=== PATIENT | female | born 1965 | race Caucasian/White ===

== ENCOUNTER 2022-03-19 17:45 | Inpatient (IN) | payer MEDICAID ==
[~2022-03-19] VITALS: Ht 170.2 cm; Wt 76.4 kg
[2022-03-19 18:16] LABS: BASOPHILS % (AUTO) 0.5 % (0-1); EOSINOPHILS # (AUTO) 0.1 X10'3 (0-0.9); EOSINOPHILS % (AUTO) 0.6 % (0-6); HEMOGLOBIN 15.2 g/dl (12.0-16.0); LYMPHOCYTES # (AUTO) 1.4 X10'3 (1.1-4.8); LYMPHOCYTES % (AUTO) 14.5 % (21-51); MEAN CORPUSCULAR HEMOGLOBIN 29.4 PG (27.0-31.0); MEAN CORPUSCULAR HGB CONC 33.8 g/dL (33.0-36.5); MEAN CORPUSCULAR VOLUME 86.8 FL (78-98); MEAN PLATELET VOLUME 8.1 FL (7.4-10.4); MONOCYTES # (AUTO) 0.6 X10'3 (0-0.9); MONOCYTES % (AUTO) 6.3 % (2-12); NEUTROPHILS # (AUTO) 7.6 X10'3 (1.8-7.7); NEUTROPHILS % (AUTO) 78.1 % (42-75); PLATELET COUNT 82 X10'3 (140-440); RED BLOOD COUNT 5.18 X10'6 (4.20-5.60); RED CELL DISTRIBUTION WIDTH 19.7 % (11.5-14.5); WHITE BLOOD COUNT 9.8 X10'3 (4.5-11.0)
[2022-03-19 18:33] LABS: ALANINE AMINOTRANSFERASE 97 U/L (12-78); ALBUMIN 3.7 G/DL (3.4-5.0); ALBUMIN/GLOBULIN RATIO 1.1 (1.1-1.5); ALKALINE PHOSPHATASE 170 IU/L (46-116); ANION GAP 13 (8-16); ASPARTATE AMINO TRANSFERASE 150 U/L (10-37); BLOOD UREA NITROGEN 17 MG/DL (7-18); BUN/CREATININE RATIO 23.3 (6.6-38.0); CALCIUM 8.5 MG/DL (8.5-10.1); CHLORIDE 105 MMOL/L (99-107); CREATININE 0.73 MG/DL (0.40-0.90); GLUCOSE 152 MG/DL (70-104); LIPASE 151 U/L (73-393); SODIUM 143 MMOL/L (135-145); TOTAL CARBON DIOXIDE 25.1 MMOL/L (24-32); TOTAL PROTEIN 7.2 G/DL (6.4-8.2); eGFR 82 ML/MIN
[2022-03-19 18:40] LABS: POTASSIUM 2.8 MMOL/L (3.5-5.1)
[2022-03-19 18:49] LABS: ANISOCYTOSIS 2+; ELLIPTOCYTES FEW; PLATELET ESTIMATE DECREASED
[2022-03-19 21:56] LABS: CLARITY,URINE CLOUDY (Clear); COLOR,URINE YELLOW (Yellow); GLUCOSE, URINE NEGATIVE (Neg); KETONES,URINE 15 mg/dl (Neg); LEUKOCYTE ESTERASE ,URINE NEGATIVE (Neg); NITRITES, URINE POSITIVE (Neg); OCCULT BLOOD,URINE SMALL (Neg); PROTEIN,URINE 30 mg/dl (Neg)
[2022-03-19 22:00] LABS: UA COLLECTION TYPE CLN CATCH MIDSTREAM
[2022-03-19 22:04] LABS: BACTERIA,URINE 4+ /HPF (Neg); HYALINE CASTS 0-3 /LPF (NEGATIVE); MUCUS STRANDS FEW /LPF (Neg); RBC,URINE 0-2 /HPF (0-2); SQUAMOUS EPITHELIAL CELL,UR FEW /LPF (FEW); TRANSITIONAL EPI CELLS,URINE FEW /HPF
[2022-03-19] MEDS ORDERED: pantoprazole 40MG/NS 100ML BAG 100 ML IV STA (23:29)
[2022-03-19] MEDS ORDERED: normal saline 1000ml 1,000 ML IV ONE (23:30)
[2022-03-19] MEDS ORDERED: cefTRIAXone 1g/NS 100ml IVPB 100 ML IV ONE (23:30)
[2022-03-19] MEDS ORDERED: metoclopramide 5 mg/ml inj IV ONE (23:30)
[2022-03-19] MEDS ORDERED: potassium Cl 20 mEq/100mL bag IV ONE (23:35)
[2022-03-19] MEDS ORDERED: potassium Cl 20mEq/100mL bag 100 ML IV ONE (23:50)
[2022-03-19 23:53] LABS: ETHANOL 0.021 GM/DL (0.0-0.010)
[2022-03-19] MEDS ORDERED: LORazepam 2 mg/ml vial IV ONE (23:55)
[2022-03-19] MEDS ORDERED: octreotide inj. 500 MCG in normal saline 100ml IV soln 97.5 ML IV ONE (23:55)
[2022-03-19 23:56] LABS: APTT 31 SECONDS (22-32)
[2022-03-20] VITALS (23 sets, daily range): BP systolic 89–146; BP diastolic 45–98
[2022-03-20] MEDS: octreotide inj. 500 MCG in normal saline 100ml IV soln 100 ML IV ONE ×2 (00:18→01:28)
[2022-03-20] MEDS ORDERED: OCTREOTIDE IV ONE (00:20)
[2022-03-20] MEDS ORDERED: NORMAL SALINE IV ONE (00:20)
[2022-03-20] MEDS ORDERED: tranexamic acid 100mg/ml inj. IV ONE (00:40)
[2022-03-20] MEDS: octreotide inj. 500 MCG in normal saline 100ml IV soln 97.5 ML IV SCH ×3 (01:29→20:05)
[2022-03-20] MEDS ORDERED: mag hydrox/Alum hydrox/simeth 30ml oral suspension PO PRN (02:10)
[2022-03-20] MEDS ORDERED: magnesium Cl slow-release 64mg tablet PO PRN (02:10)
[2022-03-20] MEDS ORDERED: ondansetron/PF 4mg/2ml inj IV PRN (02:10)
[2022-03-20] MEDS ORDERED: potassium Cl 20 mEq SR tablet PO PRN (02:10)
[2022-03-20] MEDS ORDERED: acetaminophen 325mg tablet PO PRN (02:10)
[2022-03-20] MEDS ORDERED: magnesium 2GM in 50ml NS 50 ML IV PRN (02:10)
[2022-03-20] MEDS ORDERED: magnesium 4gm in 100ml NS 100 ML IV PRN (02:10)
[2022-03-20] MEDS ORDERED: magnesium hydroxide 30ml (MOM) UD suspension PO PRN (02:10)
[2022-03-20] MEDS ORDERED: potassium CL 10mEq/100ml bag 100 ML IV PRN (02:10)
[2022-03-20 02:45] LABS: MAGNESIUM 1.6 MG/DL (1.5-2.4)
[2022-03-20 02:50] LABS: POTASSIUM 2.9 MMOL/L (3.5-5.1)
--- NOTE | 2022-03-20 03:32 | NUR ---
I have received report from Janes ED RN and had the opportunity to ask questions. Room is set up and ready for PT arrival.
[2022-03-20] MEDS ORDERED: magnesium 2GM in 50ml NS 50 ML IV ONE (04:10)
--- NOTE | 2022-03-20 04:30 | NUR ---
PT arrived from ED via gurney and transferred self to bed. PT placed on bedside monitor. PT is having PVC's and critical potassium is noted, received in report from ED RN that PT received 20meq replacement in ED, Pharmacy called and made aware of PT arrival and need for K replacement. Will administer when available. PT has PIV x3. Bed is locked and low. Will continue to monitor.
[2022-03-20] MEDS ORDERED: potassium Cl 40MEQ/1/2NS 520ml 520 ML IV PRN (04:45)
[2022-03-20] MEDS ORDERED: dextrose 50%-water 50ml dispensing syringe IV PRN (04:55)
[2022-03-20] MEDS ORDERED: LORazepam 2 mg/ml vial IV PRN (04:55)
[2022-03-20] MEDS ORDERED: SPIR25TA PO (05:54)
[2022-03-20] MEDS ORDERED: LURA20TA PO (05:54)
[2022-03-20] MEDS ORDERED: FURO40TA4 PO (05:54)
[2022-03-20] MEDS ORDERED: CLON-368 PO (05:54)
--- NOTE | 2022-03-20 06:33 | NUR ---
Problems reprioritized. Patient report given, questions answered & plan of care reviewed with Therese WRIGHT.
[2022-03-20] MEDS: K and/or MAG REPLACEMENT MC SCH ×2 (08:00→20:00)
[2022-03-20] MEDS ORDERED: heparin, porcine 5000 units/ml vial SQ SCH (08:00)
[2022-03-20] MEDS: docusate sod 100mg capsule PO SCH ×2 (08:00→20:00)
[2022-03-20 08:17] LABS: ALANINE AMINOTRANSFERASE 81 U/L (12-78); ALBUMIN/GLOBULIN RATIO 1.1 (1.1-1.5); ALKALINE PHOSPHATASE 127 IU/L (46-116); ANION GAP 12 (8-16); ASPARTATE AMINO TRANSFERASE 130 U/L (10-37); BILIRUBIN,TOTAL 2.2 MG/DL (0.1-1.0); BLOOD UREA NITROGEN 18 MG/DL (7-18); CALCIUM 7.8 MG/DL (8.5-10.1); CHLORIDE 108 MMOL/L (99-107); GLUCOSE 145 MG/DL (70-104); POTASSIUM 3.6 MMOL/L (3.5-5.1); SODIUM 143 MMOL/L (135-145); TOTAL CARBON DIOXIDE 23.3 MMOL/L (24-32); TOTAL PROTEIN 5.8 G/DL (6.4-8.2); eGFR > 90 ML/MIN
[2022-03-20] MEDS: folic acid 1mg/0.2ml inj IV SCH (08:21)
[2022-03-20] MEDS: thiamine 100mg/ml 2ml inj. IV SCH ×3 (08:21→20:12)
--- NOTE | 2022-03-20 09:39 | NUR ---
PER PATIENT REQUEST WALLET WAS SENT DOWN TO BE STORED IN THE [facility]AF[facility].
--- NOTE | 2022-03-20 09:41 | NUR ---
PATIENT COMPLAINING OF IV SITES ON LEFT ARM CAUSING PAIN, BOTH REMOVED AND A 22G PLACED.
[2022-03-20 10:29] LABS: BASOPHILS # (AUTO) 0.1 X10'3 (0-0.2); BASOPHILS % (AUTO) 1.3 % (0-1); EOSINOPHILS % (AUTO) 0 % (0-6); HEMATOCRIT 43.3 % (35.0-45.0); HEMOGLOBIN 14.5 g/dl (12.0-16.0); LYMPHOCYTES # (AUTO) 0.7 X10'3 (1.1-4.8); LYMPHOCYTES % (AUTO) 6.5 % (21-51); MEAN CORPUSCULAR HEMOGLOBIN 29.6 PG (27.0-31.0); MEAN CORPUSCULAR HGB CONC 33.5 g/dL (33.0-36.5); MEAN CORPUSCULAR VOLUME 88.4 FL (78-98); MONOCYTES # (AUTO) 0.6 X10'3 (0-0.9); MONOCYTES % (AUTO) 5.8 % (2-12); NEUTROPHILS # (AUTO) 9.2 X10'3 (1.8-7.7); NEUTROPHILS % (AUTO) 86.4 % (42-75); PLATELET COUNT 87 X10'3 (140-440); RED BLOOD COUNT 4.89 X10'6 (4.20-5.60); RED CELL DISTRIBUTION WIDTH 20.5 % (11.5-14.5); WHITE BLOOD COUNT 10.6 X10'3 (4.5-11.0)
[2022-03-20 10:49] LABS: MAGNESIUM 1.8 MG/DL (1.5-2.4)
[2022-03-20] MEDS: pantoprazole 40MG/NS 100ML BAG 100 ML IV SCH ×4 (11:20→12:18)
[2022-03-20] MEDS ORDERED: fentaNYL/PF 50MCG/1 ML 2ML syringe ONE ×2 (14:34)
[2022-03-20] MEDS ORDERED: MIDAZolam 1 MG/ML 5ML VIAL ONE (14:35)
[2022-03-20] MEDS ORDERED: LIDOcaine Viscous 15ml cup ONE (14:35)
--- NOTE | 2022-03-20 14:45 | NUR ---
PATIENT TAKEN DOWN TO GI FOR EGD.
--- NOTE | 2022-03-20 15:03 | NUR ---
PATIENT EXTUBATED AT 1455. Addendum: 03/20/22 at 1503 by Joan Sanders RN WRONG PATIENT
[2022-03-20] MEDS ORDERED: chlordiazePOXIDE 25mg capsule PO PRN (15:35)
[2022-03-20] MEDS: chlordiazePOXIDE 25mg capsule PO SCH (20:08)
[2022-03-20] MEDS: LORazepam 1 MG tablet PO PRN (20:12)
[2022-03-20] MEDS: cefTRIAXone 1g/NS 100ml IVPB IV SCH (20:12)
[2022-03-21] VITALS (21 sets, daily range): BP systolic 93–147; BP diastolic 52–87
[2022-03-21] MEDS: chlordiazePOXIDE 25mg capsule PO SCH ×4 (01:28→20:00)
[2022-03-21] MEDS: LORazepam 1 MG tablet PO PRN ×8 (01:32→20:53)
[2022-03-21 06:37] LABS: APTT 31 SECONDS (22-32)
[2022-03-21 06:39] LABS: ALBUMIN 2.8 G/DL (3.4-5.0); ANION GAP 10 (8-16); BLOOD UREA NITROGEN 17 MG/DL (7-18); BUN/CREATININE RATIO 26.2 (6.6-38.0); CALCIUM 7.7 MG/DL (8.5-10.1); CHLORIDE 106 MMOL/L (99-107); CREATININE 0.65 MG/DL (0.40-0.90); GLUCOSE 131 MG/DL (70-104); MAGNESIUM 2.2 MG/DL (1.5-2.4); POTASSIUM 3.1 MMOL/L (3.5-5.1); SODIUM 140 MMOL/L (135-145); TOTAL CARBON DIOXIDE 24.4 MMOL/L (24-32); eGFR > 90 ML/MIN
[2022-03-21 06:40] LABS: BASOPHILS % (AUTO) 1.3 % (0-1); EOSINOPHILS # (AUTO) 0.1 X10'3 (0-0.9); EOSINOPHILS % (AUTO) 3.2 % (0-6); HEMATOCRIT 33.5 % (35.0-45.0); HEMOGLOBIN 11.5 g/dl (12.0-16.0); LYMPHOCYTES # (AUTO) 1.3 X10'3 (1.1-4.8); LYMPHOCYTES % (AUTO) 41.9 % (21-51); MEAN CORPUSCULAR HEMOGLOBIN 30.5 PG (27.0-31.0); MEAN CORPUSCULAR HGB CONC 34.4 g/dL (33.0-36.5); MEAN CORPUSCULAR VOLUME 88.5 FL (78-98); MEAN PLATELET VOLUME 8.6 FL (7.4-10.4); MONOCYTES # (AUTO) 0.3 X10'3 (0-0.9); NEUTROPHILS # (AUTO) 1.5 X10'3 (1.8-7.7); NEUTROPHILS % (AUTO) 45.6 % (42-75); RED BLOOD COUNT 3.78 X10'6 (4.20-5.60); RED CELL DISTRIBUTION WIDTH 19.8 % (11.5-14.5); WHITE BLOOD COUNT 3.2 X10'3 (4.5-11.0)
[2022-03-21 06:52] LABS: PLATELET COUNT 43 X10'3 (140-440)
[2022-03-21] MEDS: docusate sod 100mg capsule PO SCH ×2 (07:29→20:01)
[2022-03-21] MEDS: thiamine 100mg/ml 2ml inj. IV SCH ×3 (07:29→20:02)
[2022-03-21] MEDS: octreotide inj. 500 MCG in normal saline 100ml IV soln 97.5 ML IV SCH ×2 (07:31→17:19)
[2022-03-21 07:32] LABS: ANISOCYTOSIS 2+; LARGE PLATELETS FEW; PLATELET ESTIMATE DECREASED
[2022-03-21] MEDS: pantoprazole 40MG/NS 100ML BAG 100 ML IV SCH ×4 (07:50→20:48)
[2022-03-21] MEDS: folic acid 1mg/0.2ml inj IV SCH (07:51)
[2022-03-21] MEDS: K and/or MAG REPLACEMENT MC SCH ×2 (08:00→20:00)
[2022-03-21] MEDS: potassium Cl 20 mEq SR tablet PO PRN ×3 (11:02→20:01)
[2022-03-21] MEDS ORDERED: clonazePAM 0.5mg tablet PO PRN (12:20)
--- NOTE | 2022-03-21 13:45 | NUR ---
Malnutrition/DM Consults: Pt admit for etoh relapse, ESLD, cirrhosis, and hematemesis related to esophageal varices s/p EGD showing no active bleed per turfgrass technician at rounds. Receiving thiamin, folic acid for etoh per EMR. Pt reports 24-33 pound wt loss past 3 months w/ decreased intake past week per RN Malnutrition Screen. Pt hx T2DM though on no DM home meds and A1C 5.4% per EMR; unsure of accuracy. Pt PO mostly 0% first full liquid meal this AM outside eating all of cream of wheat per meal ticket on pt door during rounds; PO documentation in EMR likely error. Pt seen by RD reports feeling full after few bites w/ associated wt loss past few months though does not like liquid kcal drinks such as Ensures for fear of wt gain; no scaled wt hx in EMR. Pt reports has had intentional wt loss in past however not this time; appears WD/WN during RD visit w/ no edema/wounds or weakness noted in EMR. Pt advanced to regular diet first solid meal intake pending WL today per EMR. Pt lacks minimum malnutrition criteria at this time; will monitor for further malnutrition criteria and nutrition intervention needs this admit. Addendum: 03/21/22 at [address] Amended: Links added. Addendum: 03/21/22 at [address] Malnutrition/DM Consults: Pt admit for etoh relapse, end stage liver disease, cirrhosis, and hematemesis related to esophageal varices s/p EGD showing no active bleed per turfgrass technician at rounds. Receiving thiamin, folic acid for etoh per EMR. Pt reports 24-33 pound wt loss past 3 months w/ decreased intake past week per RN Malnutrition Screen. Pt hx T2DM though on no DM home meds and A1C 5.4% per EMR; unsure of accuracy. Pt PO mostly 0% first full liquid meal this AM outside eating all of cream of wheat per meal ticket on pt door during rounds; PO documentation in EMR likely error. Pt seen by RD reports feeling full after few bites w/ associated wt loss past few months though does not like liquid kcal drinks such as Ensures for fear of wt gain; no scaled wt hx in EMR. Pt reports has had intentional wt loss in past however not this time; appears WD/WN during RD visit w/ no edema/wounds or weakness noted in EMR. Pt advanced to regular diet first solid meal intake pending WL today per EMR. Pt lacks minimum malnutrition criteria at this time; will monitor for further malnutrition criteria and nutrition intervention needs this admit.
[2022-03-21] MEDS ORDERED: lurasidone 20mg tablet PO SCH (18:00)
--- NOTE | 2022-03-21 19:00 | NUR ---
Patient in room ORTHO 4010. I have received report from AM RN and had the opportunity to ask questions and assume patient care.
--- NOTE | 2022-03-21 19:30 | NUR ---
Report given to Ilana WRIGHT on Ortho. PT transferred to Ortho/Neuro Floor via wheelchair. Pt stood up and transferred herself to bed with minimal assist.
[2022-03-21] MEDS: cefTRIAXone 1g/NS 100ml IVPB IV SCH (23:11)
[2022-03-22] MEDS: LORazepam 1 MG tablet PO PRN ×3 (00:01→07:18)
[2022-03-22] MEDS: chlordiazePOXIDE 25mg capsule PO SCH ×2 (02:45→08:30)
[2022-03-22 06:00] VITALS: BP 109/67
--- NOTE | 2022-03-22 06:53 | NUR ---
Problems reprioritized. Patient report given, questions answered & plan of care reviewed with KYLE Hoyt.
[2022-03-22] MEDS: octreotide inj. 500 MCG in normal saline 100ml IV soln 97.5 ML IV SCH (07:16)
[2022-03-22] MEDS: thiamine 100mg/ml 2ml inj. IV SCH (07:17)
[2022-03-22] MEDS: pantoprazole 40MG/NS 100ML BAG 100 ML IV SCH ×2 (07:17→07:38)
[2022-03-22] MEDS: docusate sod 100mg capsule PO SCH (07:18)
[2022-03-22 07:25] LABS: BASOPHILS % (AUTO) 1.1 % (0-1); EOSINOPHILS # (AUTO) 0.1 X10'3 (0-0.9); EOSINOPHILS % (AUTO) 3.9 % (0-6); HEMATOCRIT 36.6 % (35.0-45.0); HEMOGLOBIN 12.3 g/dl (12.0-16.0); LYMPHOCYTES % (AUTO) 27.5 % (21-51); MEAN CORPUSCULAR HEMOGLOBIN 29.5 PG (27.0-31.0); MEAN CORPUSCULAR HGB CONC 33.7 g/dL (33.0-36.5); MEAN CORPUSCULAR VOLUME 87.7 FL (78-98); MEAN PLATELET VOLUME 8.5 FL (7.4-10.4); MONOCYTES # (AUTO) 0.3 X10'3 (0-0.9); NEUTROPHILS # (AUTO) 2.3 X10'3 (1.8-7.7); NEUTROPHILS % (AUTO) 60.5 % (42-75); PLATELET COUNT 53 X10'3 (140-440); RED BLOOD COUNT 4.18 X10'6 (4.20-5.60); RED CELL DISTRIBUTION WIDTH 19.5 % (11.5-14.5); WHITE BLOOD COUNT 3.8 X10'3 (4.5-11.0)
[2022-03-22 07:32] LABS: APTT 29 SECONDS (22-32)
[2022-03-22 07:50] LABS: ANION GAP 10 (8-16); BLOOD UREA NITROGEN 11 MG/DL (7-18); BUN/CREATININE RATIO 15.5 (6.6-38.0); CALCIUM 7.8 MG/DL (8.5-10.1); CHLORIDE 107 MMOL/L (99-107); CREATININE 0.71 MG/DL (0.40-0.90); GLUCOSE 119 MG/DL (70-104); POTASSIUM 3.9 MMOL/L (3.5-5.1); SODIUM 141 MMOL/L (135-145); TOTAL CARBON DIOXIDE 24.4 MMOL/L (24-32); eGFR 85 ML/MIN
[2022-03-22] MEDS ORDERED: spironolactone 25 MG tablet PO SCH (08:00)
[2022-03-22] MEDS ORDERED: folic acid 1mg tablet PO SCH (08:00)
[2022-03-22] MEDS: K and/or MAG REPLACEMENT MC SCH (08:00)
[2022-03-22] MEDS ORDERED: furosemide 40mg tablet PO SCH (08:00)
[2022-03-22 09:32] VITALS: BP 123/65
--- NOTE | 2022-03-22 10:13 | NUR ---
Hospitalist aware of bloody or orange urine with low output. Aware Lasix and spirolactone held this AM.
[2022-03-22] MEDS ORDERED: levoFLOXACIN 500mg tablet PO ONE (10:35)
--- NOTE | 2022-03-22 10:36 | NUR ---
Paged PT to work with pt.
--- NOTE | 2022-03-22 10:52 | NUR ---
PT ambulating with pt. at this moment
[2022-03-22] MEDS ORDERED: FOLI1TAB27 PO (11:44)
[2022-03-22] MEDS ORDERED: CEFD300C3 PO (11:44)
[2022-03-22] MEDS ORDERED: THIA100T70 PO (11:44)
[2022-03-22] MEDS ORDERED: PANT-47 PO (11:44)
--- NOTE | 2022-03-22 12:57 | NUR ---
DISCHARGE NOTE: reviewed discharge paperwork with pt and bf at bedside. education and review of new medications given. Pt. is aware that medications are at her preferred pharmacy. PIV already pulled out by pt, cannula intact, no s/sx bleeding noted. Pt. belongings gathered. Pt. thinks her wallet is stored in hospital safe, knows to stop by security. Pt. discharged home.
[2022-03-24] MEDS ORDERED: thiamine 100mg tablet PO SCH (08:00)
== END 2022-03-22 13:00 | disposition home or self-care (01) | DRG 254 ==
LOC: ER 17:46 → ED HOLD 03-20 02:16 → ICU 2S 03-20 04:15 → CICU 2S 03-21 18:07 → ORTHO 4S 03-21 20:15
PROVIDERS: ADMIT Internal Medicine Critical Care Medicine; ATTEND Internal Medicine Critical Care Medicine
PROC: 0DB68ZX Excision of Stomach, Via Natural or Artificial Opening Endoscopic, Diagnostic (ICD-10-PCS; principal; 2022-03-20)
PROC: 30233K1 Transfusion of Nonautologous Frozen Plasma into Peripheral Vein, Percutaneous Approach (ICD-10-PCS; 2022-03-20)
DX: K31.89 Other diseases of stomach and duodenum (principal); D61.818 Other pancytopenia; D68.4 Acquired coagulation factor deficiency; K72.10 Chronic hepatic failure without coma; D62 Acute posthemorrhagic anemia; N39.0 Urinary tract infection, site not specified; B96.20 Unspecified Escherichia coli [E. coli] as the cause of diseases classified elsewhere; E11.9 Type 2 diabetes mellitus without complications; D69.59 Other secondary thrombocytopenia; K70.30 Alcoholic cirrhosis of liver without ascites; E87.6 Hypokalemia; F10.20 Alcohol dependence, uncomplicated; K76.9 Liver disease, unspecified; Z79.899 Other long term (current) drug therapy
CPT/HCPCS: 36415; 36430; 43239; 80048; 80053; 80320; 81001; 82948; 83036; 83690; 83735; 84100; 84132; 85008; 85025; 85384; 85610; 85730; 86885; 86900; 86901; 87077; 87081; 87088; 87186; 97161; 97530; 99152; 99291; A4620; C9113; G0378; J0696; J2060; J2250; J2354; J2405; J2765; J3010; J3411; J3475; J3480; J3490; J7030; J7040; P9059

== ENCOUNTER 2022-04-10 15:26 | Emergency (ER) | payer MEDICAID ==
[~2022-04-10 15:26] MED LIST: CEFD300C3 PO; CLON-368 PO; FOLI1TAB27 PO; FURO40TA4 PO; LURA20TA PO; PANT-47 PO; SPIR25TA PO; THIA100T70 PO
== END 2022-04-10 18:47 | disposition left against medical advice (07) ==
LOC: ER 15:27
DX: R10.9 Unspecified abdominal pain (principal); Z53.21 Procedure and treatment not carried out due to patient leaving prior to being seen by health care provider

== ENCOUNTER 2022-05-02 08:32 | Day surgery (SDC) | payer MEDICAID ==
[~2022-05-02] VITALS: Ht 170.2 cm; Wt 78.0 kg
[~2022-05-02 08:32] MED LIST changes: -CEFD300C3 PO
[2022-05-02] MEDS ORDERED: LIDOcaine 1%/PF 5ML 10 MG/ML VIAL SQ ONE (08:45)
[2022-05-02 08:47] VITALS: BP 128/83
[2022-05-02] MEDS ORDERED: albumin 25% 100mL bottle x 1 IV PRN (09:30)
[2022-05-02 09:40] VITALS: BP 125/75
== END 2022-05-02 09:50 | disposition home or self-care (01) ==
LOC: SSTAY O 08:32
PROVIDERS: ATTEND Radiology Vascular & Interventional Radiology
DX: R18.8 Other ascites (principal); Z53.8 Procedure and treatment not carried out for other reasons; K72.10 Chronic hepatic failure without coma; K74.60 Unspecified cirrhosis of liver; F10.20 Alcohol dependence, uncomplicated; D69.6 Thrombocytopenia, unspecified; D73.1 Hypersplenism; E11.9 Type 2 diabetes mellitus without complications; F12.90 Cannabis use, unspecified, uncomplicated; F17.290 Nicotine dependence, other tobacco product, uncomplicated; Z90.710 Acquired absence of both cervix and uterus; Z90.49 Acquired absence of other specified parts of digestive tract
CPT/HCPCS: 76705; A6258

== ENCOUNTER 2024-01-31 18:15 | Inpatient (IN) | payer MEDICARE, MEDICAID ==
[~2024-01-31] VITALS: Ht 170.2 cm; Wt 69.8 kg
[~2024-01-31 18:15] MED LIST changes: -CLON-368 PO; -FOLI1TAB27 PO; -LURA20TA PO; +LURA20TA8 PO; -PANT-47 PO; -THIA100T70 PO
[2024-01-31] MEDS ORDERED: iohexol 350MG/ML 100ml bottle IV ONE (18:55)
[2024-01-31 19:38] LABS: EOSINOPHILS # (AUTO) 0.1 X10'3 (0-0.9); LYMPHOCYTES # (AUTO) 0.7 X10'3 (1.1-4.8); MEAN CORPUSCULAR VOLUME 83.3 FL (78-98); MONOCYTES # (AUTO) 0.3 X10'3 (0-0.9); NEUTROPHILS # (AUTO) 2.9 X10'3 (1.8-7.7); WHITE BLOOD COUNT 3.9 X10'3 (4.5-11.0)
[2024-01-31 19:39] LABS: EOSINOPHILS % (AUTO) 1.7 % (0-6); HEMATOCRIT 42.9 % (35.0-45.0); HEMOGLOBIN 15.1 g/dl (12.0-16.0); MEAN CORPUSCULAR HEMOGLOBIN 29.2 PG (27.0-31.0); MEAN CORPUSCULAR HGB CONC 35.1 g/dL (33.0-36.5); MEAN PLATELET VOLUME 8.6 FL (7.4-10.4); MONOCYTES % (AUTO) 6.4 % (2-12); NEUTROPHILS % (AUTO) 73.9 % (42-75); PLATELET COUNT 67 X10'3 (140-440); RED BLOOD COUNT 5.16 X10'6 (4.20-5.60); RED CELL DISTRIBUTION WIDTH 15.2 % (11.5-14.5)
[2024-01-31 19:46] LABS: APTT 32 SECONDS (22-32); INR 1.2 INR; PROTHROMBIN TIME 12.7 SECONDS (9.0-12.0)
[2024-01-31 19:49] LABS: ALANINE AMINOTRANSFERASE 20 U/L (12-78); ALBUMIN 4.2 G/DL (3.4-5.0); ALBUMIN/GLOBULIN RATIO 1.4 (1.1-1.5); ALKALINE PHOSPHATASE 118 IU/L (46-116); ANION GAP 10 (8-16); ASPARTATE AMINO TRANSFERASE 23 U/L (10-37); BILIRUBIN,TOTAL 1.5 MG/DL (0.1-1.0); BLOOD UREA NITROGEN 12 MG/DL (7-18); BUN/CREATININE RATIO 12.1 (10.0-20.0); CALCIUM 8.5 MG/DL (8.5-10.1); CHLORIDE 103 MMOL/L (99-107); CREATININE 0.99 MG/DL (0.40-0.90); GLUCOSE 99 MG/DL (70-104); POTASSIUM 3.5 MMOL/L (3.5-5.1); SODIUM 140 MMOL/L (135-145); TOTAL CARBON DIOXIDE 27.2 MMOL/L (24-32); TOTAL PROTEIN 7.1 G/DL (6.4-8.2); eCRCL 60 ML/MIN; eGFR 57 ML/MIN
[2024-01-31 19:56] LABS: PRO BRAIN NATRIURETIC PEPTIDE 60 PG/ML (0-125)
[2024-01-31] MEDS: normal saline 1000ml 1,000 ML IV ONE (20:02)
[2024-01-31] MEDS ORDERED: magnesium Cl slow-release 64mg tablet PO PRN (22:10)
[2024-01-31] MEDS ORDERED: magnesium 4gm in 100ml NS 100 ML IV PRN (22:10)
[2024-01-31] MEDS ORDERED: potassium Cl 20 mEq SR tablet PO PRN ×2 (22:10)
[2024-01-31] MEDS ORDERED: HYDROcodone/acetaminophen 5mg/325mg tablet PO PRN (22:10)
[2024-01-31] MEDS ORDERED: acetaminophen 325mg tablet PO PRN ×2 (22:10)
[2024-01-31] MEDS ORDERED: morphine 2 MG/ML inj. syringe IV PRN (22:10)
[2024-01-31] MEDS ORDERED: magnesium 2GM in 50ml NS 50 ML IV PRN (22:10)
[2024-01-31] MEDS ORDERED: potassium Cl 40MEQ/1/2NS 520ml 520 ML IV PRN (22:10)
[2024-01-31] MEDS ORDERED: ondansetron/PF 4mg/2ml inj IV PRN (22:10)
[2024-01-31] MEDS ORDERED: ZIPR80CA2 PO (23:20)
[2024-01-31] MEDS ORDERED: LAMO200T2 PO (23:20)
[2024-01-31] MEDS ORDERED: DESV100T PO (23:20)
[2024-01-31] MEDS: atorvastatin 20mg tablet PO SCH (23:55)
[2024-02-01] VITALS (7 sets, daily range): BP systolic 96–125; BP diastolic 58–78; PULSE 74–82; RESP 12–17; TEMP 97.9–98.7; O2SAT 97–99
[2024-02-01] MEDS: normal saline 1000ml 1,000 ML IV SCH (01:16)
[2024-02-01 01:22] LABS: ALANINE AMINOTRANSFERASE 15 U/L (12-78); ALBUMIN 3.7 G/DL (3.4-5.0); ALBUMIN/GLOBULIN RATIO 1.4 (1.1-1.5); ALKALINE PHOSPHATASE 98 IU/L (46-116); ANION GAP 12 (8-16); ASPARTATE AMINO TRANSFERASE 19 U/L (10-37); BILIRUBIN,TOTAL 1.4 MG/DL (0.1-1.0); BLOOD UREA NITROGEN 10 MG/DL (7-18); BUN/CREATININE RATIO 12.2 (10.0-20.0); CALCIUM 8.1 MG/DL (8.5-10.1); CHLORIDE 104 MMOL/L (99-107); CREATININE 0.82 MG/DL (0.40-0.90); GLUCOSE 73 MG/DL (70-104); POTASSIUM 3.6 MMOL/L (3.5-5.1); SODIUM 141 MMOL/L (135-145); TOTAL CARBON DIOXIDE 25.3 MMOL/L (24-32); TOTAL PROTEIN 6.3 G/DL (6.4-8.2); eCRCL 69 ML/MIN; eGFR 71 ML/MIN
[2024-02-01 07:39] LABS: BASOPHILS % (AUTO) 1.2 % (0-1); EOSINOPHILS # (AUTO) 0.1 X10'3 (0-0.9); EOSINOPHILS % (AUTO) 2.7 % (0-6); HEMATOCRIT 35.8 % (35.0-45.0); HEMOGLOBIN 12.2 g/dl (12.0-16.0); LYMPHOCYTES # (AUTO) 0.6 X10'3 (1.1-4.8); LYMPHOCYTES % (AUTO) 23.2 % (21-51); MEAN CORPUSCULAR HEMOGLOBIN 28.5 PG (27.0-31.0); MEAN CORPUSCULAR HGB CONC 34.1 g/dL (33.0-36.5); MEAN CORPUSCULAR VOLUME 83.7 FL (78-98); MEAN PLATELET VOLUME 8.7 FL (7.4-10.4); MONOCYTES # (AUTO) 0.3 X10'3 (0-0.9); MONOCYTES % (AUTO) 9.8 % (2-12); NEUTROPHILS # (AUTO) 1.6 X10'3 (1.8-7.7); NEUTROPHILS % (AUTO) 63.1 % (42-75); PLATELET COUNT 61 X10'3 (140-440); RED BLOOD COUNT 4.28 X10'6 (4.20-5.60); RED CELL DISTRIBUTION WIDTH 15.2 % (11.5-14.5); WHITE BLOOD COUNT 2.6 X10'3 (4.5-11.0)
[2024-02-01 08:25] LABS: TOTAL CELLS COUNTED 100
[2024-02-01 08:26] LABS: PLATELET ESTIMATE DECREASED
[2024-02-01] MEDS ORDERED: bisacodyl 10mg suppository rectal RC PRN (09:15)
[2024-02-01] MEDS: magnesium hydroxide 30ml (MOM) UD suspension PO ONE (10:09)
[2024-02-01] MEDS: bisacodyl 10mg suppository rectal RC STA (10:09)
[2024-02-01 10:37] LABS: CHOL/HDL RATIO 2.6 (0.00-4.99); CHOLESTEROL 119 MG/DL (0-200); ETHANOL < 10 MG/DL (<10); HDL CHOLESTEROL 45 MG/DL (35-60); LDL CHOLESTEROL 62 MG/DL (50-100); TRIGLYCERIDES 64 MG/DL (20-135)
[2024-02-01 11:29] LABS: URINE AMPHETAMINE SCREEN NEGATIVE (Neg); URINE BARBITUATE SCREEN NEGATIVE (Neg); URINE BENZODIAZEPINES SCREEN NEGATIVE (Neg); URINE CANNABINOID SCREEN NEGATIVE (Neg); URINE COCAINE SCREEN NEGATIVE (Neg); URINE METHADONE SCREEN NEGATIVE (Neg); URINE OPIATE SCREEN NEGATIVE (Neg); URINE PHENCYCLIDINE SCREEN NEGATIVE (Neg)
[2024-02-01] MEDS ORDERED: glucagon, human recombinant 1mg kit SUBCUT PRN (11:30)
[2024-02-01] MEDS ORDERED: dextrose 50%-water 50ml dispensing syringe IV PRN ×2 (11:30)
[2024-02-01] MEDS ORDERED: insulin Lispro (HumaLOG) vial - multi-dose SQ SCH (11:30)
[2024-02-01] MEDS ORDERED: DEXTROSE 15 GM of carb/4 tabs (each vial/BOTTLE has 4 tablets) PO PRN ×2 (11:30)
[2024-02-01] MEDS: LORazepam 2 mg/ml vial IV ONE (11:34)
[2024-02-01] MEDS: lactulose 20gm/30ml cup PO SCH (14:00)
[2024-02-01] MEDS: docusate sod 100mg capsule PO SCH (20:00)
[2024-02-01] MEDS: enoxaparin 40mg/0.4ml syringe SQ SCH (20:00)
[2024-02-01] MEDS: insulin glargine (Lantus) pen - multi-dose SQ SCH (21:00)
[2024-02-02 06:00] VITALS: BP_SYST 118; BP_SYST 121; BP_DIAS 70; BP_DIAS 74; PULSE 70; PULSE 76; RESP 14; RESP 16; TEMP 97.9; TEMP 98; O2SAT 92; O2SAT 96
[2024-02-02 08:00] VITALS: RESP 16; O2SAT 98
[2024-02-02] MEDS ORDERED: propranolol 10mg tablet PO SCH (08:00)
[2024-02-02] MEDS: DESVENLAFAXINE SUCCINATE PO SCH (08:00)
[2024-02-02] MEDS: ziprasidone 20mg capsule PO SCH (08:00)
[2024-02-02 09:07] LABS: EOSINOPHILS # (AUTO) 0.1 X10'3 (0-0.9); HEMOGLOBIN 12.2 g/dl (12.0-16.0); LYMPHOCYTES # (AUTO) 0.6 X10'3 (1.1-4.8); MEAN CORPUSCULAR HGB CONC 33.9 g/dL (33.0-36.5); MONOCYTES # (AUTO) 0.2 X10'3 (0-0.9); MONOCYTES % (AUTO) 8.6 % (2-12); NEUTROPHILS # (AUTO) 1.3 X10'3 (1.8-7.7); WHITE BLOOD COUNT 2.2 X10'3 (4.5-11.0)
[2024-02-02 09:11] LABS: BASOPHILS % (AUTO) 1.1 % (0-1); EOSINOPHILS % (AUTO) 3.6 % (0-6); LYMPHOCYTES % (AUTO) 26.6 % (21-51); MEAN CORPUSCULAR HEMOGLOBIN 28.7 PG (27.0-31.0); MEAN CORPUSCULAR VOLUME 84.7 FL (78-98); MEAN PLATELET VOLUME 8.4 FL (7.4-10.4); NEUTROPHILS % (AUTO) 60.1 % (42-75); PLATELET COUNT 54 X10'3 (140-440); RED BLOOD COUNT 4.25 X10'6 (4.20-5.60); RED CELL DISTRIBUTION WIDTH 15.2 % (11.5-14.5)
[2024-02-02 09:33] LABS: ALANINE AMINOTRANSFERASE 15 U/L (12-78); ALBUMIN 3.3 G/DL (3.4-5.0); ALBUMIN/GLOBULIN RATIO 1.3 (1.1-1.5); ALKALINE PHOSPHATASE 92 IU/L (46-116); ANION GAP 9 (8-16); ASPARTATE AMINO TRANSFERASE 24 U/L (10-37); BILIRUBIN,TOTAL 0.8 MG/DL (0.1-1.0); BLOOD UREA NITROGEN 9 MG/DL (7-18); BUN/CREATININE RATIO 12.3 (10.0-20.0); CALCIUM 7.8 MG/DL (8.5-10.1); CHLORIDE 108 MMOL/L (99-107); CREATININE 0.73 MG/DL (0.40-0.90); GLUCOSE 83 MG/DL (70-104); POTASSIUM 3.8 MMOL/L (3.5-5.1); SODIUM 140 MMOL/L (135-145); TOTAL CARBON DIOXIDE 22.8 MMOL/L (24-32); TOTAL PROTEIN 5.9 G/DL (6.4-8.2); eCRCL 81 ML/MIN; eGFR 82 ML/MIN
[2024-02-02 09:56] LABS: THYROID STIMULATING HORMONE 1.57 ulU/ml (0.34-4.50)
[2024-02-02 10:30] LABS: BURR CELLS FEW; ELLIPTOCYTES FEW; PLATELET ESTIMATE DECREASED; TOTAL CELLS COUNTED 100
== END 2024-02-02 13:39 | disposition home or self-care (01) | DRG 123 ==
LOC: ER 18:15 → ED HOLD 22:11 → ORTHO 4S 02-01 01:04
PROVIDERS: ADMIT Internal Medicine; ATTEND Internal Medicine
PROC: B3251ZZ Computerized Tomography (CT Scan) of Bilateral Common Carotid Arteries using Low Osmolar Contrast (ICD-10-PCS; principal; 2024-01-31)
PROC: B32G1ZZ Computerized Tomography (CT Scan) of Bilateral Vertebral Arteries using Low Osmolar Contrast (ICD-10-PCS; 2024-01-31)
PROC: B32R1ZZ Computerized Tomography (CT Scan) of Intracranial Arteries using Low Osmolar Contrast (ICD-10-PCS; 2024-01-31)
PROC: B3281ZZ Computerized Tomography (CT Scan) of Bilateral Internal Carotid Arteries using Low Osmolar Contrast (ICD-10-PCS; 2024-01-31)
DX: H53.2 Diplopia (principal); G92.8 Other toxic encephalopathy; G25.1 Drug-induced tremor; H49.01 Third [oculomotor] nerve palsy, right eye; K70.30 Alcoholic cirrhosis of liver without ascites; F31.9 Bipolar disorder, unspecified; G25.0 Essential tremor; F41.9 Anxiety disorder, unspecified; F17.210 Nicotine dependence, cigarettes, uncomplicated; D69.6 Thrombocytopenia, unspecified; E11.9 Type 2 diabetes mellitus without complications; T42.6X5A Adverse effect of other antiepileptic and sedative-hypnotic drugs, initial encounter; Z79.899 Other long term (current) drug therapy; Y92.89 Other specified places as the place of occurrence of the external cause
CPT/HCPCS: 70450; 70496; 70498; 70551; 74018; 80053; 80061; 80305; 82140; 82948; 83036; 83880; 84439; 84443; 84484; 85007; 85610; 85730; 93005; 96360; 97161; 99285; J1815; J3490; 36415; 71045; 80320; 85025; 87081; 93306; 97116; 97530; G0378; J2060; J7030; Q9967

== ENCOUNTER 2024-03-14 02:46 | Observation (INO) | payer MEDICARE, MEDICAID ==
[~2024-03-14] VITALS: Ht 170.2 cm; Wt 67.0 kg
[~2024-03-14 02:46] MED LIST changes: +DESV100T PO; +LAMO200T2 PO; -LURA20TA8 PO; +ZIPR80CA2 PO
[2024-03-14] MEDS: ringers solution, lacted 1,000 ML IV STA (04:50)
[2024-03-14 05:10] LABS: APTT 27 SECONDS (22-32); INR 1.2 INR; PROTHROMBIN TIME 12.7 SECONDS (9.0-12.0)
[2024-03-14 05:12] LABS: ALANINE AMINOTRANSFERASE 25 U/L (12-78); ALBUMIN 3.4 G/DL (3.4-5.0); ALBUMIN/GLOBULIN RATIO 1.1 (1.1-1.5); ALKALINE PHOSPHATASE 98 IU/L (46-116); ANION GAP 11 (8-16); ASPARTATE AMINO TRANSFERASE 26 U/L (10-37); BILIRUBIN,TOTAL 0.7 MG/DL (0.1-1.0); BLOOD UREA NITROGEN 11 MG/DL (7-18); BUN/CREATININE RATIO 14.3 (10.0-20.0); CALCIUM 8.9 MG/DL (8.5-10.1); CHLORIDE 103 MMOL/L (99-107); CREATININE 0.77 MG/DL (0.40-0.90); GLUCOSE 108 MG/DL (70-104); MAGNESIUM 1.9 MG/DL (1.5-2.4); POTASSIUM 3.3 MMOL/L (3.5-5.1); SODIUM 141 MMOL/L (135-145); TOTAL CARBON DIOXIDE 27.5 MMOL/L (24-32); TOTAL PROTEIN 6.5 G/DL (6.4-8.2); eCRCL 77 ML/MIN; eGFR 77 ML/MIN
[2024-03-14 05:20] LABS: BASOPHILS % (AUTO) 1.2 % (0-1); EOSINOPHILS # (AUTO) 0.1 X10'3 (0-0.9); EOSINOPHILS % (AUTO) 2.4 % (0-6); HEMATOCRIT 39.4 % (35.0-45.0); HEMOGLOBIN 13.7 g/dl (12.0-16.0); LYMPHOCYTES # (AUTO) 0.6 X10'3 (1.1-4.8); LYMPHOCYTES % (AUTO) 15.3 % (21-51); MEAN CORPUSCULAR HEMOGLOBIN 28.8 PG (27.0-31.0); MEAN CORPUSCULAR HGB CONC 34.8 g/dL (33.0-36.5); MEAN CORPUSCULAR VOLUME 82.9 FL (78-98); MEAN PLATELET VOLUME 9.1 FL (7.4-10.4); MONOCYTES # (AUTO) 0.3 X10'3 (0-0.9); MONOCYTES % (AUTO) 6.9 % (2-12); NEUTROPHILS # (AUTO) 3.1 X10'3 (1.8-7.7); NEUTROPHILS % (AUTO) 74.2 % (42-75); PLATELET COUNT 81 X10'3 (140-440); RED BLOOD COUNT 4.76 X10'6 (4.20-5.60); RED CELL DISTRIBUTION WIDTH 14.9 % (11.5-14.5); WHITE BLOOD COUNT 4.2 X10'3 (4.5-11.0)
[2024-03-14] MEDS ORDERED: magnesium Cl slow-release 64mg tablet PO PRN (06:10)
[2024-03-14] MEDS ORDERED: magnesium 2GM in 50ml NS 50 ML IV PRN (06:10)
[2024-03-14] MEDS ORDERED: magnesium 4gm in 100ml NS 100 ML IV PRN (06:10)
[2024-03-14] MEDS ORDERED: ondansetron/PF 4mg/2ml inj IV PRN (06:10)
[2024-03-14] MEDS ORDERED: potassium Cl 20 mEq SR tablet PO PRN (06:10)
[2024-03-14] MEDS ORDERED: potassium Cl 40MEQ/1/2NS 520ml 520 ML IV PRN (06:10)
[2024-03-14] MEDS ORDERED: acetaminophen 325mg tablet PO PRN ×2 (06:10)
[2024-03-14] MEDS: normal saline 1000ml 1,000 ML IV SCH (07:10)
[2024-03-14] MEDS: heparin, porcine 5000 units/ml vial SQ SCH (07:48)
[2024-03-14] MEDS: potassium Cl 20 mEq SR tablet PO PRN (07:57)
[2024-03-14] MEDS: K and/or MAG REPLACEMENT MC SCH (07:59)
[2024-03-14 10:00] VITALS: BP_SYST 119; BP_SYST 122; BP_SYST 97; BP_DIAS 64; BP_DIAS 67; BP_DIAS 78; PULSE 76; PULSE 86; RESP 16; O2SAT 99
[2024-03-14] MEDS: lamoTRIgine 100mg tablet PO SCH (12:32)
[2024-03-14 18:00] VITALS: BP 124/77; PULSE 90; RESP 16; TEMP 97.5; O2SAT 96
[2024-03-14 19:10] VITALS: BP 119/64; PULSE 77; RESP 14; TEMP 96.2; O2SAT 97
[2024-03-14 20:00] VITALS: RESP 16; O2SAT 95
[2024-03-14] MEDS: venlafaxine 25mg tablet PO SCH (21:17)
[2024-03-14] MEDS: ziprasidone 20mg capsule PO SCH (21:19)
[2024-03-14] MEDS: benzonatate 100mg capsule PO PRN (21:32)
[2024-03-14 22:00] VITALS: BP 139/80; PULSE 82; RESP 15; TEMP 98.2; O2SAT 96
[2024-03-15 02:00] VITALS: BP_SYST 103; BP_SYST 108; BP_SYST 116; BP_DIAS 68; BP_DIAS 73; BP_DIAS 74; PULSE 77; PULSE 79; PULSE 80
[2024-03-15 06:00] VITALS: BP 118/77; PULSE 76; RESP 16; TEMP 97.7; O2SAT 96
[2024-03-15 07:16] LABS: ALANINE AMINOTRANSFERASE 15 U/L (12-78); ALBUMIN 2.9 G/DL (3.4-5.0); ALKALINE PHOSPHATASE 84 IU/L (46-116); ANION GAP 7 (8-16); ASPARTATE AMINO TRANSFERASE 22 U/L (10-37); BILIRUBIN,TOTAL 0.9 MG/DL (0.1-1.0); BLOOD UREA NITROGEN 10 MG/DL (7-18); BUN/CREATININE RATIO 15.4 (10.0-20.0); CHLORIDE 107 MMOL/L (99-107); CREATININE 0.65 MG/DL (0.40-0.90); GLUCOSE 82 MG/DL (70-104); POTASSIUM 3.7 MMOL/L (3.5-5.1); SODIUM 140 MMOL/L (135-145); TOTAL CARBON DIOXIDE 26.1 MMOL/L (24-32); TOTAL PROTEIN 5.8 G/DL (6.4-8.2); eCRCL 91 ML/MIN; eGFR > 90 ML/MIN
[2024-03-15 07:17] LABS: BASOPHILS % (AUTO) 0.9 % (0-1); EOSINOPHILS # (AUTO) 0.1 X10'3 (0-0.9); EOSINOPHILS % (AUTO) 3.2 % (0-6); HEMATOCRIT 35.3 % (35.0-45.0); HEMOGLOBIN 12.3 g/dl (12.0-16.0); LYMPHOCYTES # (AUTO) 0.6 X10'3 (1.1-4.8); LYMPHOCYTES % (AUTO) 20.1 % (21-51); MEAN CORPUSCULAR HEMOGLOBIN 28.9 PG (27.0-31.0); MEAN CORPUSCULAR HGB CONC 34.8 g/dL (33.0-36.5); MEAN CORPUSCULAR VOLUME 83.1 FL (78-98); MEAN PLATELET VOLUME 8.6 FL (7.4-10.4); MONOCYTES # (AUTO) 0.3 X10'3 (0-0.9); MONOCYTES % (AUTO) 7.9 % (2-12); NEUTROPHILS # (AUTO) 2.2 X10'3 (1.8-7.7); NEUTROPHILS % (AUTO) 67.9 % (42-75); PLATELET COUNT 74 X10'3 (140-440); RED BLOOD COUNT 4.25 X10'6 (4.20-5.60); RED CELL DISTRIBUTION WIDTH 14.9 % (11.5-14.5); WHITE BLOOD COUNT 3.2 X10'3 (4.5-11.0)
[2024-03-15 08:00] VITALS: BP_SYST 113; BP_SYST 126; BP_SYST 89; BP_DIAS 56; BP_DIAS 69; BP_DIAS 74; PULSE 81; PULSE 87
[2024-03-15] MEDS: furosemide 40mg tablet PO SCH (08:45)
[2024-03-15] MEDS: spironolactone 25 MG tablet PO SCH (08:47)
[2024-03-15 10:00] VITALS: BP 108/64; PULSE 81; RESP 16; TEMP 98.2; O2SAT 94
[2024-03-15] MEDS ORDERED: LACT10SO7 PO (11:16)
[2024-03-15] MEDS: normal saline 1000ml 1,000 ML IV ONE (12:39)
[2024-03-15] MEDS: lactulose 20gm/30ml cup PO SCH (15:25)
== END 2024-03-15 16:55 | disposition home or self-care (01) ==
LOC: ER 02:47 → ED HOLD 06:09 → ORTHO 4S 09:14
PROVIDERS: ADMIT Internal Medicine; ATTEND Internal Medicine
DX: K70.30 Alcoholic cirrhosis of liver without ascites (principal); F41.8 Other specified anxiety disorders; F31.9 Bipolar disorder, unspecified; E11.9 Type 2 diabetes mellitus without complications; H53.2 Diplopia; D69.6 Thrombocytopenia, unspecified; F17.210 Nicotine dependence, cigarettes, uncomplicated; Z91.81 History of falling; Z79.899 Other long term (current) drug therapy
CPT/HCPCS: 36415; 71045; 80053; 82140; 83605; 83735; 84145; 85025; 85610; 85651; 85730; 86140; 87040; 87081; 93005; 96360; 96361; 97161; 97530; 99285; G0378; J7030; J7120